=== PATIENT | female | born 1975 | race Caucasian/White ===

== ENCOUNTER 2018-09-06 09:14 | Day surgery (SDC) | payer OTHER ==
[2018-09-06] MEDS ORDERED: Sodium Chloride 0.9(Preservative Free) 10 ML IJ ONE (09:15)
[2018-09-06] MEDS ORDERED: Ketamine HCl 50 MG/ML IV ONE (09:15)
[2018-09-06] MEDS ORDERED: DIPRIVAN 200 MG/20 ML IV ONE (09:15)
[2018-09-06] MEDS ORDERED: Depo-Medrol 40 MG/ML IM ONE (09:15)
--- NOTE | 2018-09-06 11:05 | XRAY ---
Indication: Bilateral L4 DALLAS. Intraoperative fluoroscopy was provided for 27 seconds. 6 digital spot images submitted for interpretation demonstrates posterior needle tips projecting over the expected course of the left and right L4 nerve roots. Small amount of contrast injected for needle tip placement. Incidental bilateral L5-S1 posterior spinal hardware with intervertebral spacer and bilateral bone grafts. Correlate with intraoperative findings/report.
--- NOTE | 2018-09-06 11:08 | XRAY ---
27 seconds fluoroscopy time in surgery for bilateral L4 DALLAS.
[2018-09-06] MEDS ORDERED: Lactated Ringers 1,000 ML IV ONE (13:08)
== END 2018-09-06 10:25 | disposition home or self-care (01) ==
LOC: SDC-PAIN 09:14
PROVIDERS: ATTEND Psychiatry & Neurology Pain Medicine
DX: M54.16 Radiculopathy, lumbar region (principal); E11.9 Type 2 diabetes mellitus without complications; K21.9 Gastro-esophageal reflux disease without esophagitis; F41.8 Other specified anxiety disorders; Z79.899 Other long term (current) drug therapy
CPT/HCPCS: 64483; 64484; 72020; 77003; 82962; 84703; J1030; J2704; Q9966